=== PATIENT | female | born 1955 | race Caucasian/White ===

== ENCOUNTER 2018-09-05 10:54 | Emergency (ER) | payer OTHER ==
--- OUTSIDE RECORDS SUMMARY | 2018-09-05 10:56 | XMS REPORT ---
:1955 [facility] Address [address] [place] [address] [address] [place] [address] Care Team Providers Name Role Phone Unavailable Unavailable Unavailable Payers Payer Name Policy Type Policy Number Effective Date Expiration Date Problems This patient has no known problems. Allergies, Adverse Reactions, Alerts Allergy Name Allergy Status Severity Reaction(s) Onset Inactive Treating Comments Type Date Date Clinician zinc DA Active AK 2017-06 00:00: 00 zinc DA Active U 2017-06 00:00: 00 No Known Drug DA Active U 1999-0 Intolerances - 00:00: 00 Medications This patient has no known medications. Results Test Description Test Time Test Comments Text Results Atomic Results Result Comments CT ABDOMEN AND PELVIS 2018-04-22 12:23:31 CLINICAL INDICATION: C54.1 Malignant W/WO neoplasm of endometriumMODALITY: Siemens Horizon CT (Iterative dose reduction techniques are utilized.)TECHNIQUE: Helical imaging of the abdomen and pelvis is performed. Oral contrast is administered. 90 mls optiray are administered IV. Imaging performed prior to and after administration of contrast.Computed Tomography Dose Index: 29 mGy. IMPRESSION:1. No discrete uterine mass suspicious for malignancy is detected. Recommend correlation with ultrasound or MRI.2. Calcified uterine fibroids.3. No evidence of metastatic disease in the abdomen or pelvis.4. Incidental findings described below.FINDINGS:COMPARISON: NoneThe lung bases are clear. No pleural disease is present. Oral contrast in the esophagus is suggestive of gastroesophageal reflux.The liver is normal in size and contour. A few sub-centimeter hypodensities in the left liver likely represent cysts. Hepatic veins, portal venous system and biliary tree are normal. The gallbladder contains a gallstone. No pericholecystic inflammatory changes.A small hiatal hernia is noted. A duodenal diverticulum is also seen adjacent to the pancreatic head. The spleen is normal in size and contour. No pancreatic mass, pancreatic duct dilatation or peripancreatic edema is visible.Adrenal glands and kidneys are normal. There are no renal calculi, hydronephrosis or masses noted.Neither retrocrural nor retroperitoneal adenopathy is present. Vascular structures are within normal limits.Moderate diverticulosis is noted without evidence of diverticulitis. Normal appendix. Omentum and mesentery are unremarkable.A small, fat-containing ventral wall hernia is noted.No ascites visualized.No lytic or blastic osseous lesions are observed.The urinary bladder is unremarkable.Calcified uterine fibroids are present, the largest measures 2-3 cm. No discrete uterine mass suspicious for malignancy is detected. No suspicious adnexal masses. No free fluid is present in the pelvis.No pelvic or inguinal lymphadenopathy is evident.PQRS 436: [id number] (For official use only.)
[2018-09-05] MEDS ORDERED: NA CHLORIDE 0.9% 1,000 ML ONE ×3 (11:59→16:16)
[2018-09-05] MEDS ORDERED: PROMETHAZINE 25 MG/ML VIAL ONE ×2 (11:59→14:23)
[2018-09-05 12:07] LABS: Absolute Lymphocytes (CBC) 0.9 K/uL (0.7-4.9); Absolute Monocytes 0.3 K/uL (0.1-1.3); Absolute Neutrophil 15.5 K/uL (1.8-8.0); Basophils % 0.1 % (0-1.3); Eosinophils % 0.1 % (0-4.4); Hematocrit 35.6 % (36.0-45.0); Lymphocytes % 5.4 % (15.3-44.8); MPV 7.9 fL (7.6-11.3); Monocytes % 1.8 % (3.3-12.3); RBC Red Blood Cell Count 3.87 M/uL (3.86-4.86)
[2018-09-05 12:19] LABS: Protime INR 1.17
[2018-09-05 12:39] LABS: Albumin 3.2 g/dL (3.4-5.0); Bilirubin Direct 0.2 mg/dL (0-0.2); Potassium 3.4 mmol/L (3.5-5.1); Protein, Total 7.2 g/dL (6.4-8.2)
[2018-09-05 12:48] LABS: Blood Morphology Comment NOT SEEN (NOT SEEN); Platelet Estimate INCR
--- NOTE | 2018-09-05 14:14 | ER ---
Nurse's Notes [facility] Name: Елена Gonzalez Age: 63 yrs Sex: Female : 1955 Arrival Date: 09/05/2018 Time: 11:00 Bed 7 Private MD: John Viera Diagnosis: Vomiting;Hematemesis Presentation: 09/05 11:10 Presenting complaint: Patient states: coffee ground emesis today. Pt reports she takes aa5 Zofran at home and reports last chemotherapy was on Friday at [facility] in [place], [place]. Denies abd pain, denies diarrhea. 11:10 Transition of care: patient was not received from another setting of care. Onset of aa5 symptoms was September 05, 2018. Risk Assessment: Do you want to hurt yourself or someone else? Patient reports no desire to harm self or others. Care prior to arrival: None. 11:10 Acuity: KELVIN 2 aa5 11:10 Method Of Arrival: Wheelchair aa5 19:29 Initial Sepsis Screen: Does the patient meet any 2 criteria? No. Patient's initial ch sepsis screen is negative. Does the patient have a suspected source of infection? No. Patient's initial sepsis screen is negative. Triage Assessment: 12:00 General: Appears in no apparent distress. uncomfortable, Behavior is cooperative, ch appropriate for age. Pain: Denies pain. Neuro: No deficits noted. GI: Abdomen is round non-distended, Bowel sounds present X 4 quads. Abd is soft and non tender X 4 quads. Reports nausea, vomiting, bloody coffee ground emesis. Historical: - Allergies: 11:10 No Known Allergies; aa5 - PMHx: 11:10 Endometrial cancer; aa5 - PSHx: 11:10 Hysterectomy; aa5 - Immunization history:: Flu vaccine is up to date. - Social history:: Smoking status: Patient/guardian denies using tobacco. - Ebola Screening: : No symptoms or risks identified at this time. - Family history:: not pertinent. - Hospitalizations: : No recent hospitalization is reported. Screenin:44 Abuse screen: Denies threats or abuse. Denies injuries from another. Nutritional ch screening: No deficits noted. Tuberculosis screening: No symptoms or risk factors identified. Fall Risk None identified. Assessment: 11:44 General: Appears in no apparent distress. uncomfortable, Behavior is cooperative, ch appropriate for age. Pain: Denies pain. Neuro: No deficits noted. Respiratory: Airway is patent Respiratory effort is even, unlabored. GI: Abdomen is round non-distended, Bowel sounds present X 4 quads. Abd is soft and non tender X 4 quads. Reports nausea, vomiting, black coffee ground emesis. : No signs and/or symptoms were reported regarding the genitourinary system. Derm: Skin is pale. 12:20 Reassessment: Patient appears in no apparent distress at this time. No changes from previously documented assessment. Patient and/or family updated on plan of care and expected duration. Pain level reassessed. Patient is alert, oriented x 3, equal unlabored respirations, skin warm/dry/pink. 13:13 Reassessment: Patient appears in no apparent distress at this time. Patient and/or ch family updated on plan of care and expected duration. Pain level reassessed. Patient is alert, oriented x 3, equal unlabored respirations, skin warm/dry/pink. Patient states feeling better. 14:26 Reassessment: Patient appears in no apparent distress at this time. Patient and/or ch family updated on plan of care and expected duration. Pain level reassessed. Patient is alert, oriented x 3, equal unlabored respirations, skin warm/dry/pink. PT AND FAMILY VERB UNDERSTANDING OF TRANSFER. NO S/S OF DISTRESS. 15:00 Reassessment: Patient appears in no apparent distress at this time. No changes from previously documented assessment. Patient and/or family updated on plan of care and expected duration. Pain level reassessed. 16:20 Reassessment: Patient appears in no apparent distress at this time. Patient and/or ch family updated on plan of care and expected duration. Pain level reassessed. Patient is alert, oriented x 3, equal unlabored respirations, skin warm/dry/pink. pt oob to restroom, tolerated change from bed to wheelchair well. no s/s of distress. Patient states feeling better. Patient states symptoms have improved. 17:00 Reassessment: Patient appears in no apparent distress at this time. Patient states ch symptoms have improved. Vital Signs: 11:11 Pulse 130; Resp 18 S; Temp 98.2(TE); Pulse Ox 100% on R/A; Weight 54.43 kg (R); Height aa5 5 ft. 0 in. (152.40 cm) (R); Pain 0/10; 12:00 BP 116 / 71; Pulse 94; ch 13:12 BP 135 / 82; Pulse 123; Resp 22; Pulse Ox 99% on R/A; Pain 0/10; ch 14:26 BP 120 / 76; Pulse 138; Resp 18; Pulse Ox 99% on R/A; Pain 0/10; ch 15:23 BP 116 / 87; Pulse 125; Resp 21; Temp 98.7; Pulse Ox 99% on R/A; Pain 0/10; ch 16:30 BP 122 / 78; Pulse 131; Resp 20; Temp 98.5; Pulse Ox 99% on R/A; Pain 0/10; ch 11:11 Body Mass Index 23.44 (54.43 kg, 152.40 cm) aa5 11:11 Unable to obtain BP reading at this time. aa5 15:23 pt sleeping in room, states she is normally very drowsy and out of it on day 3 ch after chemo ED Course: 11:00 Patient arrived in ED. mr 11:01 John Viera MD is Private Physician. mr 11:10 Arm band placed on. aa5 11:19 Triage completed. aa5 11:29 Wali Wright MD is Attending Physician. rn 11:30 Gely Santana RN is Primary Nurse. ch 11:44 Patient has correct armband on for positive identification. Placed in gown. Bed in low ch position. Call light in reach. Side rails up X 1. Adult w/ patient. bus driver/monitor on. Pulse ox on. NIBP on. Warm blanket given. Pillow given. 11:44 No provider procedures requiring assistance completed. Initial lab(s) drawn, by ak, ch sent to lab. T\T\S collected, blood band applied to patient. GUIAC of vomit performed, pt has black vomit, GUIAC positive. erp notified. Inserted saline lock: 18 gauge in right antecubital area, using aseptic technique. Blood collected. 11:57 EKG done, by ED staff, reviewed by Wali Wright MD. jb1 13:37 initiated a transfer with Karolyn with the [facility] transfer center. eb 14:04 connected the GI and Hospitalist consumer safety officer for [facility] with Dr. Wright for patient eb transfer consultation. 14:11 administrative approval given by Karolyn Serrano from the [facility] transfer eb center/ patient is going to 9 tower bed 902/ report to be called to [phone]/ Dr. Murphy has accepted the patient in transfer. 16:30 No apparent distress. Resting quietly. Appears to be sleeping. ch 16:30 Patient transferred, IV remains in place. ch Administered Medications: 12:20 Drug: NS 0.9% 1000 ml Route: IV; Rate: 1000 ml; Site: right antecubital; ch 13:15 Follow up: IV Status: Completed infusion; IV Intake: 1000ml ch 12:20 Drug: Phenergan 12.5 mg Route: IVP; Site: right antecubital; ch 13:15 Follow up: Response: No adverse reaction ch 14:19 Drug: ProTONIX 40 mg Route: IVP; Site: right antecubital; hj 14:25 Follow up: Response: No adverse reaction ch 14:20 Drug: Phenergan 12.5 mg Route: IVP; Site: right antecubital; hj 14:25 Follow up: Response: No adverse reaction; Nausea is decreased ch 14:20 Drug: NS 0.9% 1000 ml Route: IV; Rate: 150 ml/hr; Site: right antecubital; hj 14:25 Follow up: IV Status: Infusion continued upon transfer ch 14:24 Drug: NS 0.9% 500 ml Route: IV; Rate: bolus; Site: right antecubital; hj 14:33 Follow up: IV Status: Completed infusion hj 15:10 Drug: ProTONIX 8 mg/hr Route: IV; Rate: 25 ml/hr; Site: right antecubital; ch Intake: 13:15 IV: 1000ml; Total: 1000ml. Outcome: 14:13 ER care complete, transfer ordered by . jeannie 17:00 Transferred by ground EMS to [facility], Transfer form completed. X-rays sent w/ patient. 17:00 Condition: stable 17:00 Instructed on the need for transfer. 17:10 Patient left the ED. Signatures: Dion Mendieta Christina, RN RN ch Rivera, Mary mr Nieto, Roman, MD MD rn John, Leslie, RN RN aa5 Laith Mckeon RN RN hj Botello, Elizabeth eb Corrections: (The following items were deleted from the chart) 11:21 11:10 Presenting complaint: Patient states: coffee ground emesis today. Pt reports she aa5 takes Zofran at home and reports last chemotherapy was on Friday at [facility] in [place], [place]. aa5
--- NOTE | 2018-09-05 14:14 | EDPHYS ---
Physician Documentation [facility] Name: Елена Gonzalez Age: 63 yrs Sex: Female : 1955 Arrival Date: 09/05/2018 Time: 11:00 Bed 7 Private MD: John Viera ED Physician Wali Wright HPI: 09/05 13:20 This 63 yrs old Female presents to ER via Wheelchair with complaints of rn Reaction to Chemo, Vomiting. 13:20 The patient presents to the emergency department with nausea, vomiting. Onset: The rn symptoms/episode began/occurred yesterday. The symptoms are aggravated by nothing. The symptoms are alleviated by nothing. Severity of symptoms: At their worst the symptoms were moderate in the emergency department the symptoms are unchanged. The patient has not experienced similar symptoms in the past. The patient has not recently seen a physician. REports chemo recently, began to experience vomiting, today a few episodes of coffee ground emesis, no history of GI bleeding. Not on blood thinners.. Historical: - Allergies: 11:10 No Known Allergies; aa5 - PMHx: 11:10 Endometrial cancer; aa5 - PSHx: 11:10 Hysterectomy; aa5 - Immunization history:: Flu vaccine is up to date. - Social history:: Smoking status: Patient/guardian denies using tobacco. - Ebola Screening: : No symptoms or risks identified at this time. - Family history:: not pertinent. - Hospitalizations: : No recent hospitalization is reported. ROS: 13:20 Constitutional: Negative for fever, chills, and weight loss, Eyes: Negative for injury, rn pain, redness, and discharge, Cardiovascular: Negative for chest pain, palpitations, and edema, Respiratory: Negative for shortness of breath, cough, wheezing, and pleuritic chest pain, Abdomen/GI: + nasuea/vomiting MS/Extremity: Negative for injury and deformity, Skin: Negative for injury, rash, and discoloration, Neuro: Negative for headache, weakness, numbness, tingling, and seizure. Exam: 13:20 Constitutional: This is a well developed, well nourished patient who is awake, alert, rn and in no acute distress. Head/Face: Normocephalic, atraumatic. ENT: dry coffee ground emesis at nare and mouth Cardiovascular: tachycardic, regular Respiratory: Lungs have equal breath sounds bilaterally, clear to auscultation Abdomen/GI: soft, non-tender Skin: Warm, dry MS/ Extremity: Pulses equal, no cyanosis. Neuro: Awake and alert, GCS 15, oriented to person, place, time, and situation. Vital Signs: 11:11 Pulse 130; Resp 18 S; Temp 98.2(TE); Pulse Ox 100% on R/A; Weight 54.43 kg (R); Height aa5 5 ft. 0 in. (152.40 cm) (R); Pain 0/10; 12:00 BP 116 / 71; Pulse 94; ch 13:12 BP 135 / 82; Pulse 123; Resp 22; Pulse Ox 99% on R/A; Pain 0/10; ch 14:26 BP 120 / 76; Pulse 138; Resp 18; Pulse Ox 99% on R/A; Pain 0/10; ch 15:23 BP 116 / 87; Pulse 125; Resp 21; Temp 98.7; Pulse Ox 99% on R/A; Pain 0/10; ch 16:30 BP 122 / 78; Pulse 131; Resp 20; Temp 98.5; Pulse Ox 99% on R/A; Pain 0/10; ch 11:11 Body Mass Index 23.44 (54.43 kg, 152.40 cm) aa5 11:11 Unable to obtain BP reading at this time. aa5 15:23 pt sleeping in room, states she is normally very drowsy and out of it on day 3 ch after chemo MDM: 11:29 Patient medically screened. rn 14:12 Differential diagnosis: gastritis, gastroenteritis, UGIB, herbie-farrell. Data reviewed: rn vital signs, nurses notes, lab test result(s), EKG, and as a result, I will admit patient. Counseling: I had a detailed discussion with the patient and/or guardian regarding: the historical points, exam findings, and any diagnostic results supporting the discharge/admit diagnosis, lab results, the need for outpatient follow up, to return to the emergency department if symptoms worsen or persist or if there are any questions or concerns that arise at home. Special discussion: I discussed with the patient/guardian in detail that at this point there is no indication for admission to the hospital. It is understood, however, that if the symptoms persist or worsen the patient needs to return immediately for re-evaluation. 09/05 11:34 Order name: CBC with Diff; Complete Time: 13:20 rn 09/05 11:34 Order name: Basic Metabolic Panel; Complete Time: 13:20 rn 09/05 11:34 Order name: Protime (+inr); Complete Time: 13:20 rn 09/05 11:34 Order name: Ptt, Activated; Complete Time: 13:20 rn 09/05 11:34 Order name: LFT's; Complete Time: 13:20 rn 09/05 11:34 Order name: Lipase; Complete Time: 13:20 rn 09/05 11:40 Order name: Type And Screen; Complete Time: 14:05 rn 09/05 12:16 Order name: Manual Differential; Complete Time: 13:20 EDMS 09/05 14:11 Order name: BMP rn 09/05 11:34 Order name: IV Start; Complete Time: 13:16 rn 09/05 11:35 Order name: EKG; Complete Time: 11:35 rn 09/05 11:35 Order name: EKG - Nurse/Tech; Complete Time: 12:58 rn Administered Medications: 12:20 Drug: NS 0.9% 1000 ml Route: IV; Rate: 1000 ml; Site: right antecubital; ch 13:15 Follow up: IV Status: Completed infusion; IV Intake: 1000ml ch 12:20 Drug: Phenergan 12.5 mg Route: IVP; Site: right antecubital; ch 13:15 Follow up: Response: No adverse reaction ch 14:19 Drug: ProTONIX 40 mg Route: IVP; Site: right antecubital; hj 14:25 Follow up: Response: No adverse reaction ch 14:20 Drug: Phenergan 12.5 mg Route: IVP; Site: right antecubital; hj 14:25 Follow up: Response: No adverse reaction; Nausea is decreased ch 14:20 Drug: NS 0.9% 1000 ml Route: IV; Rate: 150 ml/hr; Site: right antecubital; hj 14:25 Follow up: IV Status: Infusion continued upon transfer ch 14:24 Drug: NS 0.9% 500 ml Route: IV; Rate: bolus; Site: right antecubital; hj 14:33 Follow up: IV Status: Completed infusion hj 15:10 Drug: ProTONIX 8 mg/hr Route: IV; Rate: 25 ml/hr; Site: right antecubital; ch Disposition: 09/05/18 14:13 Transfer ordered to [facility]. Diagnosis are Vomiting, Hematemesis. - Reason for transfer: Higher level of care. - Accepting physician is . - Condition is Stable. - Problem is new. - Symptoms have improved. Signatures: Dispatcher [employer] EDMS Gely Santana RN RN Wali Wright MD MD rn Calderon, Audri, RN RN aa Laith Mckeon RN RN Corrections: (The following items were deleted from the chart) 13:24 13:20 Constitutional: This is a well developed, well nourished patient who is awake, rn alert, and in no acute distress. rn 17:10 14:13 09/05/2018 14:13 Transfer ordered to [facility]. Diagnosis is ch Vomiting; Hematemesis. Reason for transfer: Higher level of care. Accepting physician is . Condition is Stable. Problem is new. Symptoms have improved. rn
[2018-09-05] MEDS ORDERED: PANTOPRAZOLE 40 MG INJ ONE (14:23)
[2018-09-05] MEDS ORDERED: PANTOPRAZOLE INJ 80 MG in NA CHLORIDE 0.9% 250 ML IV SCH (15:00)
[2018-09-05 16:01] LABS: BUN Blood Urea Nitrogen 26 mg/dL (7-18); Bicarbonate 23 mmol/L (21-32); Glucose Level 126 mg/dL (74-106); Potassium 3.4 mmol/L (3.5-5.1); Sodium Level 130 mmol/L (136-145)
--- NOTE | 2018-09-06 12:28 | EKG ---
Test Date: 2018-09-05 Test Time: 11:57:10 Relocation Counselor: LOYDA MEASUREMENT RESULTS: Intervals: Rate: 100 [place]: 138 QRSD: 70 QT: 348 QTc: 448 [place]: P: 61 AZ: 138 QRS: 13 T: 62 INTERPRETIVE STATEMENTS: Normal sinus rhythm Cannot rule out Anterior infarct, age undetermined Abnormal ECG No previous ECG available for comparison Electronically Signed On 09-06-18 12:24:42 CDT by Carson Harris
== END 2018-09-05 17:10 | disposition short-term general hospital (02) ==
LOC: ER 10:54
DX: R11.2 Nausea with vomiting, unspecified (principal); K92.0 Hematemesis; C54.1 Malignant neoplasm of endometrium
CPT/HCPCS: 36415; 80048; 80076; 83690; 85025; 85610; 85730; 86850; 86900; 86901; 93005; 96361; 96374; 96375; 99285; C9113; J2550; J7030